=== PATIENT | female | born 1990 | race Caucasian/White ===

== ENCOUNTER 2016-10-29 15:11 | Observation (INO) | payer MEDICAID ==
[~2016-10-29] VITALS: Ht 154.9 cm; Wt 68.0 kg
[2016-10-29] MEDS ORDERED: PREN-88 PO (16:16)
[2016-10-29] MEDS ORDERED: FERR-63 PO (16:16)
== END 2016-10-29 16:59 | disposition home or self-care (01) ==
LOC: L&D 15:11
PROVIDERS: ADMIT Obstetrics & Gynecology; ATTEND Obstetrics & Gynecology
DX: O62.9 Abnormality of forces of labor, unspecified (principal); Z3A.00 Weeks of gestation of pregnancy not specified
CPT/HCPCS: 99281; G0378

== ENCOUNTER 2016-11-09 03:17 | Observation (INO) | payer MEDICAID ==
[~2016-11-09] VITALS: Ht 154.9 cm; Wt 68.0 kg
[~2016-11-09 03:17] MED LIST: FERR-63 PO; PREN-88 PO
== END 2016-11-09 05:31 | disposition home or self-care (01) ==
LOC: L&D 03:17
PROVIDERS: ADMIT Specialist; ATTEND Specialist
DX: O42.92 Full-term premature rupture of membranes, unspecified as to length of time between rupture and onset of labor (principal); Z3A.38 38 weeks gestation of pregnancy
CPT/HCPCS: 76815; 76818; 99281; G0378

== ENCOUNTER 2016-11-10 10:55 | Inpatient (IN) | payer MEDICAID ==
[~2016-11-10] VITALS: Ht 154.9 cm; Wt 68.0 kg
[2016-11-10] MEDS ORDERED: LACTATED RINGERS 1,000 ML IV SCH (13:27)
[2016-11-10] MEDS ORDERED: CARBOPROST TROMETHAMINE 250 MCG/ML AMPUL IM PRN (13:30)
[2016-11-10] MEDS ORDERED: METHYLERGONOVINE MALEATE 0.2 MG/ML IM PRN (13:30)
[2016-11-10] MEDS ORDERED: LIDOCAINE HCL 1% 20ML VIAL (Pyxis) INJ INFIL SCH (13:30)
[2016-11-10] MEDS ORDERED: PENICILLIN G POTASSIUM 5 MMU in DEXT 5% WATER 100 ML IV NR (13:30)
[2016-11-10] MEDS ORDERED: MISOPROSTOL 100MCG TABLET VG SCH (13:30)
[2016-11-10] MEDS ORDERED: NALOXONE HCL 0.4 MG/ML 1ML VIAL IM PRN (13:30)
[2016-11-10] MEDS ORDERED: BUTORPHANOL TARTRATE 2 MG/ML VIAL IV PRN (13:30)
[2016-11-10 13:49] LABS: BASOPHILS % 0.7 % (0.0-2.0); EOSINOPHILS % 0.6 % (0.0-5.0); HEMATOCRIT. 36.7 % (36.0-48.0); HEMOGLOBIN. 12.7 g/dL (12.0-16.0); MEAN CORPUSCULAR VOLUME 89.6 fL (81.0-99.0); MONOCYTES % 5.2 % (2.0-8.0); NEUTROPHILS % 74.5 % (40.0-76.0); PLATELET 252 x1000/uL (130-400); RED BLOOD CELL COUNT 4.09 mill/uL (4.2-5.4); RED CELL DISTRIBUTION WIDTH 12.3 % (11.6-14.6)
[2016-11-10 13:52] LABS: CLARITY URINE CLEAR (CLEAR); COLOR URINE YELLOW (YELLOW); GLUCOSE URINE NEGATIVE (NEGATIVE); KETONES URINE NEGATIVE (NEGATIVE); LEUKOCYTE ESTERASE URINE NEGATIVE (NEGATIVE); NITRITE URINE NEGATIVE (NEGATIVE); OCCULT BLOOD URINE NEGATIVE (NEGATIVE); PROTEIN URINE NEGATIVE (NEGATIVE); SPECIFIC GRAVITY URINE 1.005 (1.005-1.030); UROBILINOGEN URINE 0.2 E.U./dL (0.2-1.0)
[2016-11-10 14:10] LABS: *AMPHETAMINES SCREEN URINE NEGATIVE (NEGATIVE); *BARBITURATES SCREEN URINE NEGATIVE (NEGATIVE); *BENZODIAZEPINES SCREEN URINE NEGATIVE (NEGATIVE); *COCAINE SCREEN URINE NEGATIVE (NEGATIVE); CANNABINOID URINE SCREEN NEGATIVE (NEGATIVE); METHADONE URINE SCREEN NEGATIVE (NEGATIVE); OPIATES URINE SCREEN NEGATIVE (NEGATIVE); PHENCYCLIDINE URINE SCREEN NEGATIVE (NEGATIVE)
[2016-11-10 14:29] LABS: RUBELLA IGG 69.7 IU/mL (4.99-10)
[2016-11-10 14:30] LABS: HEPATITIS B SURFACE ANTIGEN NEGATIVE
[2016-11-10] MEDS: DEXT 5%/LR + PITOCIN 20UNITS/L 1,000 ML IV SCH ×2 (14:33→16:13)
[2016-11-10] MEDS: IBUPROFEN 800MG TABLET PO PRN (16:07)
[2016-11-10] MEDS ORDERED: DEXT 5%/LR + PITOCIN 20UNITS/L 1,000 ML IV SCH (16:53)
[2016-11-10] MEDS ORDERED: BISACODYL 10MG SUPP PR PRN (17:00)
[2016-11-10] MEDS ORDERED: BENZOCAINE/LANOLIN/ALOE VERA SPRAY TOP PRN (17:00)
[2016-11-10] MEDS ORDERED: HEMORRHOIDAL SUPP PR PRN (17:00)
[2016-11-10] MEDS ORDERED: ACETAMINOPHEN WITH CODEINE 300/30MG TABLET PO PRN ×2 (17:00)
[2016-11-10] MEDS ORDERED: IBUPROFEN 400MG TABLET PO PRN (17:00)
[2016-11-10] MEDS ORDERED: RHO(D) IMMUNE GLOBULIN 300 MCG/SYR IM PRN (17:00)
[2016-11-10] MEDS ORDERED: DIPHENHYDRAMINE 25MG CAPSULE PO PRN (17:00)
[2016-11-10] MEDS ORDERED: GLYCERIN/WITCH HAZEL LEAF MEDICATED PAD TOP PRN (17:00)
[2016-11-10 17:41] LABS: PROTHROMBIN TIME 10.6 sec
[2016-11-10] MEDS ORDERED: PENICILLIN G POTASSIUM 2.5 MMU in DEXTROSE 5% WATER 50 ML IV SCH (18:00)
[2016-11-10 19:35] VITALS: BP 132/84
[2016-11-10] MEDS: MAGNESIUM/ALUMINUM HYDROXIDE/SIMETHICONE 30ML UDC PO SCH (21:17)
[2016-11-10] MEDS: DOCUSATE SODIUM 100MG CAPSULE PO SCH (21:18)
[2016-11-10] MEDS: SIMETHICONE 80MG TABLET CHEW PO SCH (21:20)
[2016-11-10 23:45] VITALS: BP 107/62
[2016-11-11 06:24] LABS: BASOPHILS % 0.5 % (0.0-2.0); EOSINOPHILS % 0.7 % (0.0-5.0); HEMATOCRIT. 31.6 % (36.0-48.0); HEMOGLOBIN. 10.8 g/dL (12.0-16.0); LYMPHOCYTES % 27.2 % (20.0-50.0); MEAN CORPUSCULAR HEMOGLOBIN 30.9 pg (28.0-32.0); MEAN CORPUSCULAR VOLUME 90.2 fL (81.0-99.0); MEAN PLATELET VOLUME 8.9 fl (7.4-10.4); MONOCYTES % 6.9 % (2.0-8.0); NEUTROPHILS % 64.7 % (40.0-76.0); PLATELET 215 x1000/uL (130-400); RED CELL DISTRIBUTION WIDTH 12.5 % (11.6-14.6)
[2016-11-11 08:30] VITALS: BP 110/74
[2016-11-11] MEDS: IBUPROFEN 800MG TABLET PO PRN ×2 (08:40→21:08)
[2016-11-11] MEDS: PRENATAL VIT/FE FUMARATE/FA TABLET PO SCH (08:40)
[2016-11-11] MEDS ORDERED: FERROUS SULFATE 325MG TABLET PO SCH (12:10)
[2016-11-11 17:14] VITALS: BP 102/56
[2016-11-11] MEDS: MAGNESIUM/ALUMINUM HYDROXIDE/SIMETHICONE 30ML UDC PO SCH (21:07)
[2016-11-11] MEDS: DOCUSATE SODIUM 100MG CAPSULE PO SCH (21:08)
[2016-11-11] MEDS: SIMETHICONE 80MG TABLET CHEW PO SCH (21:09)
[2016-11-12] VITALS: BP 110/65
[2016-11-12 08:06] VITALS: BP 109/68
[2016-11-12] MEDS: MAGNESIUM/ALUMINUM HYDROXIDE/SIMETHICONE 30ML UDC PO SCH (09:17)
[2016-11-12] MEDS: IBUPROFEN 800MG TABLET PO PRN (09:18)
[2016-11-12] MEDS: PRENATAL VIT/FE FUMARATE/FA TABLET PO SCH (09:18)
== END 2016-11-12 12:30 | disposition home or self-care (01) | DRG 560 ==
LOC: L&D 10:55 → OBSVTOIN 10:55 → 7EST PP/OB 17:11
PROVIDERS: ADMIT Obstetrics & Gynecology; ATTEND Obstetrics & Gynecology
PROC: 10E0XZZ Delivery of Products of Conception, External Approach (ICD-10-PCS; principal; 2016-11-10 13:57)
DX: O99.824 Streptococcus B carrier state complicating childbirth (principal); O62.3 Precipitate labor; Z37.0 Single live birth; Z3A.39 39 weeks gestation of pregnancy
CPT/HCPCS: 36415; 80305; 81003; 85025; 85610; 85730; 86592; 86703; 86762; 86850; 86900; 87340; J0595; J2540; J2590; J7060; J7120